=== PATIENT | female | born 1970 | race Caucasian/White ===

== ENCOUNTER 2018-05-09 23:04 | Emergency (ER) | payer MEDICAID, OTHER ==
[2018-05-09 23:08] VITALS: RESP 24; TEMP 97; O2SAT 96
[2018-05-09] MEDS ORDERED: MORPHINE SULFATE 10 MG/ML SOL IV ONE (23:26)
[2018-05-09] MEDS ORDERED: MORPHINE SULFATE 10 MG/ML SOL ONE (23:31)
[2018-05-10] MEDS ORDERED: MORPHINE SULFATE 10 MG/ML SOL IV ONE (00:09)
[2018-05-10 00:57] VITALS: BP 99/55; PULSE 70
[2018-05-10] MEDS ORDERED: SODIUM CHLORIDE 0.9% FLUSH 10 ML SOL IV PRN (01:12)
== END 2018-05-10 00:50 | disposition home or self-care (01) | DRG 392 ==
LOC: ED 23:04
DX: R10.30 Lower abdominal pain, unspecified (principal)
CPT/HCPCS: 96374; 99283; 99284; J2270

== ENCOUNTER 2018-06-05 15:33 | Emergency (ER) | payer MEDICAID, OTHER ==
[2018-06-05 15:48] VITALS: BP 137/84; PULSE 84; RESP 16; TEMP 97.9; O2SAT 99
[2018-06-05] MEDS ORDERED: ONDANSETRON HCL 4 MG/2 ML SOL IV ONE (16:05)
[2018-06-05] MEDS ORDERED: KETOROLAC TROMETHAMINE 30 MG/ML SOL IV ONE (16:05)
[2018-06-05] MEDS ORDERED: SODIUM CHLORIDE 0.9% 500 ML 500 ML IV ONE (16:05)
[2018-06-05] MEDS ORDERED: ONDANSETRON HCL 4 MG/2 ML SOL ONE (16:14)
[2018-06-05 16:17] LABS: LACTIC ACID < 0.8 mMol/L (0.0-2.0)
[2018-06-05] MEDS ORDERED: KETOROLAC TROMETHAMINE 30 MG/ML SOL ONE (16:17)
[2018-06-05 16:24] LABS: APPEARANCE,URINE Clear; BILIRUBIN,URINE NEGATIVE (NEGATIVE); COLOR,URINE Yellow; GLUCOSE, URINE (UA) NEGATIVE (NEGATIVE); KETONES,URINE 1+ (NEGATIVE); LEUKOCYTE ESTERASE ,URINE NEGATIVE (NEGATIVE); NITRATE,URINE NEGATIVE (NEGATIVE); OCCULT BLOOD,URINE NEGATIVE (NEG-TRACE); UROBILINOGEN,URINE 0.2 (0.2-1.0 EU)
[2018-06-05 16:31] LABS: ALBUMIN 3.6 gm/dl (3.4-5.0); ALKALINE PHOSPHATASE 61 IU/L (46-116); ALT 27 IU/L (14-63); AST 15 IU/L (15-37); BILIRUBIN,TOTAL 0.2 mg/dl (0.2-1.0); BLOOD UREA NITROGEN 24 mg/dl (7-18); CALCIUM 8.8 mg/dl (8.5-10.1); CARBON DIOXIDE 28.8 mEq/L (21-32); CHLORIDE 103 mMol/L (98-107); CREATININE 0.91 mg/dl (0.60-1.00); CRP INFLAMMATORY 0.11 mg/dl (0.00-0.33); GLUCOSE 111 mg/dl (74-106); POTASSIUM 4.2 mMol/L (3.5-5.1); SODIUM 139 mMol/L (136-145)
[2018-06-05 16:33] LABS: HEMATOCRIT 44 % (35-47); HEMOGLOBIN 14.2 gm/dl (12.0-15.5); MEAN CORPUSCULAR HEMOGLOBIN 31.2 pg (27.0-32.0); MEAN CORPUSCULAR HGB CONC 32.5 gm/dl (32.0-36.0); MEAN CORPUSCULAR VOLUME 96 fL (81-99)
[2018-06-05 16:45] LABS: BACTERIA 1+ (< 1+); CRYSTALS NEGATIVE (0-3 AVE/HPF); RBC,URINE NEGATIVE (0-3AV/HPF); WBC,URINE 0-1 (0-5AV/HPF)
[2018-06-05 17:32] LABS: BAND NEUTROPHILS % (MANUAL) 0 %; BASOPHILS % (MANUAL) 0 % (0-3); EOSINOPHILS % (MANUAL) 2 % (0-9); LYMPHOCYTES % (MANUAL) 32 % (10-50); MONOCYTES % (MANUAL) 8 % (0-12); NEUTROPHILS % (MANUAL) 58 % (37-80); NORMAL RBCS PRESENT
== END 2018-06-05 17:50 | disposition home or self-care (01) ==
LOC: ED 15:33
DX: R10.30 Lower abdominal pain, unspecified (principal)
CPT/HCPCS: 74177; 80053; 81001; 85007; 85027; 96365; 96374; 96375; 99282; 99284; J1885; J2405; Q9967

== ENCOUNTER 2018-10-31 20:20 | Emergency (ER) | payer OTHER ==
[2018-10-31 20:43] VITALS: RESP 16; TEMP 99
[2018-10-31 21:55] VITALS: BP 120/71; PULSE 68; O2SAT 98
== END 2018-10-31 21:50 | disposition home or self-care (01) | DRG 153 ==
LOC: ED 20:20
DX: J04.0 Acute laryngitis (principal)
CPT/HCPCS: 87430; 99282

== ENCOUNTER 2018-12-31 16:17 | Emergency (ER) | payer OTHER ==
[2018-12-31] MEDS ORDERED: EPINEPHRINE 1:10,000 PREFILL 0.1 MG/ML SOL ONE (16:24)
[2018-12-31] MEDS ORDERED: EPINEPHRINE 1:1000 AMP 1 MG/ML SOL ONE (16:25)
[2018-12-31] MEDS ORDERED: EPINEPHRINE 1:1000 AMP 1 MG/ML SOL IM ONE ×2 (16:44→17:09)
[2018-12-31 16:51] VITALS: RESP 20; TEMP 96.4
[2018-12-31] MEDS ORDERED: SODIUM CHLORIDE 0.9% 500 ML 500 ML IV ONE (17:20)
[2018-12-31 18:40] VITALS: BP 105/42; PULSE 90; O2SAT 99
== END 2018-12-31 18:50 | disposition home or self-care (01) | DRG 918 ==
LOC: ED 16:17
DX: T63.441A Toxic effect of venom of bees, accidental (unintentional), initial encounter (principal); T78.2XXA Anaphylactic shock, unspecified, initial encounter; W57.XXXA Bitten or stung by nonvenomous insect and other nonvenomous arthropods, initial encounter
CPT/HCPCS: 96365; 96372; 99283; 99284